=== PATIENT | male | born 1955 | race Caucasian/White ===

== ENCOUNTER 2016-12-15 14:12 | Outpatient (RCR) | payer OTHER | END 2017-03-15 | disposition home or self-care (01) | LOC: CARD 14:12 | PROVIDERS: ATTEND Internal Medicine Interventional Cardiology | DX: R06.02 Shortness of breath (principal); R53.83 Other fatigue; I25.10 Atherosclerotic heart disease of native coronary artery without angina pectoris; E78.5 Hyperlipidemia, unspecified; I10 Essential (primary) hypertension | CPT/HCPCS: 93225; 93226 ==

== ENCOUNTER → 2016-12-29 | Outpatient (CLI) | payer OTHER ==
[~2016-12-29] MED LIST: CATHETER FLUSH 10 ML SYR IV PRN; REGADENOSON 0.4 MG/5 ML SYR (LEXISCAN) IV ONE
[2016-12-29 09:26] VITALS: BP 173/98
--- NOTE | 2016-12-30 12:51 | STRESS TEST ---
DATE OF SERVICE: 12/29/2016 PHARMACOLOGICAL NUCLEAR STRESS TEST PRIMARY PHYSICIAN: Dr. Bolton. INDICATION: Coronary artery disease, hypertension, shortness of breath, diabetes and heart failure. PROCEDURE DETAILS: The patient was brought to the stress lab after informed consent was taken. Stress test was performed according to the Lexiscan protocol. A 0.4 mg of Lexiscan was given intravenously. Low grade exercise was performed. Baseline EKG shows sinus rhythm at 77 BPM. Blood pressure was 173/98 mmHg. Maximum heart rate was 112 BPM. Blood pressure was 196/109 mmHg. The patient did not have any chest pain, arrhythmias or ST-T wave abnormalities. Myoview 10.24 mCi were given for rest imaging and 30.6 mCi of Myoview were given for stress imaging. TID is 1.01. Ejection fraction 51%. There is no perfusion defect on stress or rest imaging. SSS is 0, SRS is 0, SDS is 0. CONCLUSION: 1. Pharmacological stress test is negative for ischemia. 2. Elevated blood pressure is noted. 3. Borderline low LV systolic function is noted with an EF of 51%. However, there is no wall motion abnormality. 4. There is no perfusion defect on stress and rest imaging. Job ID: [id number] DocumentID: [id number] Dictated Date: 12/30/2016 09:31:03 Turbine Attendant Date: 12/30/2016 11:07:16 Dictated By: JEET CARTAGENA MD
== END ==
LOC: CARD 08:19
PROVIDERS: ATTEND Internal Medicine Interventional Cardiology
DX: I25.10 Atherosclerotic heart disease of native coronary artery without angina pectoris (principal); E78.5 Hyperlipidemia, unspecified; I10 Essential (primary) hypertension; R06.02 Shortness of breath; R53.83 Other fatigue
CPT/HCPCS: 78452; 93017

== ENCOUNTER 2017-03-31 08:03 | Outpatient (RCR) | payer OTHER | END 2017-04-29 | disposition home or self-care (01) | PROVIDERS: ATTEND Internal Medicine | DX: M54.2 Cervicalgia (principal) ==

== ENCOUNTER 2018-04-06 13:27 | Outpatient (CLI) | payer OTHER ==
[~2018-04-06] VITALS: Ht 177.8 cm; Wt 81.6 kg
[~2018-04-06 13:27] MED LIST changes: +ATOR20TA66 PO; +BISO10TA PO; -CATHETER FLUSH 10 ML SYR IV PRN; +CYAN250010 PO; +INDA2.5T2 PO; +LISI40TA PO; +MELO7.5T46 PO; +OMEP40CA36 PO; -REGADENOSON 0.4 MG/5 ML SYR (LEXISCAN) IV ONE
== END 2018-04-06 14:00 | disposition home or self-care (01) ==
LOC: PREOP 13:27
PROVIDERS: ATTEND Internal Medicine
DX: Z01.818 Encounter for other preprocedural examination (principal)

== ENCOUNTER 2018-04-10 07:06 | Day surgery (SDC) | payer OTHER ==
[~2018-04-10] VITALS: Ht 177.8 cm; Wt 81.6 kg
[2018-04-10] MEDS ORDERED: D5 LR IV SOLUTION 1,000 ML IV ONE (07:09)
[2018-04-10 07:15] VITALS: BP 137/83
[2018-04-10] MEDS ORDERED: fentaNYL INJECTION 100 MCG/2 ML AMP ONE (07:28)
[2018-04-10] MEDS ORDERED: LIDOCAINE JELLY 2% (XYLOCAINE) 5 ML TUBE ONE (07:28)
[2018-04-10] MEDS ORDERED: MIDAZOLAM 2 MG/2 ML (VERSED) VIAL ONE ×2 (07:28)
[2018-04-10] MEDS ORDERED: LACTATED RINGERS 1,000 ML IV STA (07:32)
[2018-04-10] MEDS ORDERED: MIDAZOLAM 2 MG/2 ML (VERSED) VIAL IVP ONE (07:45)
[2018-04-10] MEDS ORDERED: fentaNYL INJECTION 100 MCG/2 ML AMP IVP ONE (07:45)
--- NOTE | 2018-04-10 08:24 | Pre-Op Note & Conscious Sedat ---
Pre-Operative Progress Note H&P Reviewed The H&P was reviewed, patient examined and no changes noted. Date H&P Reviewed: Apr 10, 2018 Time H&P Reviewed: 07:30 Conscious Sedation Pre-Proced ASA Class: 2 Airway Mallampati Classification: (flandreau appropriate class) I. II. III, IV Lungs Heart ASA score ASA 1: a normal healthy patient ASA 2: a patient with a mild systemic disease (mid diabetes, controlled hypertension, obesity ASA 3: a patient with a severe systemic disease that limits activity (angina , COPD, prior Myocardial infarction) ASA 4: a patient with an incapacitating disease that is a constant threat to life (CHF, renal failure) ASA 5: a moribund patient not expected to survive 24 hrs. (ruptured aneurysm) ASA 6: a declared brain patient whose organs are being harvested. For emergent operations, add the letter E after the classification Grade 2 Sedation Plan: Analgesia, Amnesia, Plan communicated to team members, Discussed options with patient/fam, Discussed risks with patient/fam Note The patient is an appropriate candidate to undergo the planned procedure, sedation, and anesthesia. The patient immediately re-assessed prior to indication. FERNANDO EVANS MD Apr 10, 2018 08:24
[2018-04-10 08:25] VITALS: BP 129/75
[2018-04-10 08:55] VITALS: BP 128/84
[2018-04-10 09:05] VITALS: BP 128/84
--- NOTE | 2018-04-10 10:23 | OPERATIVE REPORT ---
DATE OF SERVICE: COLONOSCOPY SUMMARY INDICATION FOR THE PROCEDURE: Screening colonoscopy. PRIMARY CARE PHYSICIAN: Fernando Evans MD. DESCRIPTION OF PROCEDURE: The patient was placed in the left lateral decubitus position. Prior to undergoing colonoscopy, digital rectal evaluation was performed. Anal sphincter tone was normal and the perianal reflexes intact. Prostate is mildly enlarged, anodular and nontender to digital inspection. No abnormalities were noted on digital inspection of the anal canal or distal rectal vault. The colonoscope was then inserted into the rectum under direct visualization and advanced to the cecum. The cecum was identified by identification of the ileocecal valve and cecal strap. Photographic documentation was obtained. Careful inspection was made as the endoscope was withdrawn. The patient tolerated the procedure well. FINDINGS: There was no evidence for internal or external hemorrhoids. The rectum, sigmoid colon, descending colon, splenic flexure, transverse colon, hepatic flexure, ascending colon and cecum were normal. No evidence for diverticulum, neoplasia or other abnormalities were noted. ASSESSMENT: Normal colonoscopy of the cecum. The patient is not aware of any family history for colon cancer. I would advocate consideration for 10 year screening again. Job ID: [id number] DocumentID: [id number] Dictated Date: 04/10/2018 08:28:42 Distribution Center Assistant Date: 04/10/2018 10:22:39 Dictated By: FERNANDO EVANS MD
== END 2018-04-10 09:05 | disposition home or self-care (01) ==
LOC: ENDO 07:06
PROVIDERS: ATTEND Internal Medicine
DX: Z12.11 Encounter for screening for malignant neoplasm of colon (principal); I10 Essential (primary) hypertension

== ENCOUNTER 2019-05-14 07:23 | Inpatient (IN) | payer OTHER ==
[2019-05-14] VITALS (9 sets, daily range): BP systolic 72–107; BP diastolic 51–74
[~2019-05-14] VITALS: Ht 177 cm; Wt 81.8 kg
--- NOTE | 2019-05-14 08:21 | ED GI ---
General Chief Complaint: Abdominal/GI Problems Stated Complaint: ABD PAIN Nursing Triage Note: ARRIVED VIA AMB WITH COMPLAINTS OF GENERALIZED BODY ACHES WITH EPIGASTRIC PAIN THAT IS BETTER THEN IT WAS YESTERDAY. STATES HE SAW HIS DR YESTERDAY BUT THE GENRALIZED ACHES IS WORSE. Sepsis Screen: Possible Severe Sepsis Risk Source of Information: Patient (GORGE ALMARAZ,MED STUDENT) History of Present Illness Date Seen by Provider: May 14, 2019 Time Seen by Provider: 07:55 Initial Comments Patient is a 63y/o Causasian male that presents to the ED with abdominal pain that started 2-3days ago. Pain is described as constant in the epigastric region when it began but has disappeared now. Nothing makes the pain better or worse . Patient notes that he has very little appetite, has been very nauseous with no vomiting, has not had a bowel movement in 3 days and had some dysuria and muscle cramping yesterday. Pain is rated as 7/10 with no radiation. Patient also mentions that he saw Dr. Bolton yesterday, who thinks this may be a viral illness. ROS admits to fever, chills, nausea, NOGUEIRA, diaphoresis, malaise, decreased appetite, constipation, SOB, low back pain, dysuria, oligoria, muscle cramps denies vomiting, chest pain, light headedness cough, diarrhea Timing/Duration: 2-3 Days Severity/Quality: Moderate, Other (constant) Location: Epigastric Radiation: No Radiation Activities at Onset: None Associated Symptoms: Diaphoresis, Fever/Chills, Fatigue, Nausea/Vomiting (nausea only ), Shortness of Air (GORGE ALMARAZ,MED STUDENT) Allergies and Home Medications Allergies Coded Allergies: No Known Drug Allergies (Unverified , 04/06/18) Home Medications Atorvastatin Calcium 20 Mg Tablet, 20 MG PO HS, (Reported) Bisoprolol Fumarate 10 Mg Tablet, 10 MG PO DAILY, (Reported) Cyanocobalamin (Vitamin B-12) 2,500 Mcg Tablet, 2,500 MCG PO DAILY, (Reported) Indapamide 2.5 Mg Tablet, 2.5 MG PO DAILY, (Reported) Lisinopril 40 Mg Tablet, 40 MG PO DAILY, (Reported) Meloxicam 7.5 Mg Tablet, 7.5 MG PO DAILY, (Reported) Omeprazole 40 Mg Capsule., 40 MG PO DAILY, (Reported) Review of Systems Review of Systems Constitutional: see HPI Respiratory: See HPI Cardiovascular: See HPI Gastrointestinal: See HPI Genitourinary: See HPI Musculoskeletal: see HPI (GORGE ALMARAZ MED STUDENT) Past Shcxyws-Qdayqn-Pbbwid Hx Patient Social History Alcohol Use: Occasionally Uses Recreational Drug Use: No Smoking Status: Never a Smoker Recent Foreign Travel: No Contact w/Someone Who Travel: No Recent Infectious Disease Expo: No Recent Hopitalizations: No (GORGE ALMARAZ MED STUDENT) Seasonal Allergies Seasonal Allergies: No (GORGE ALMARAZ MED STUDENT) Past Medical History Surgeries: Yes (knee replaced, hernia repair) Tonsillectomy Respiratory: No Cardiac: Yes Hypertension Neurological: No Genitourinary: No Gastrointestinal: Yes Abdominal Hernia Musculoskeletal: Yes Arthritis Endocrine: No Cancer: No Psychosocial: No Integumentary: No Blood Disorders: No (GORGE ALMARAZ MED STUDENT) Physical Exam Vital Signs Vital Signs - First Documented 05/14/19 05/14/19 07:40 08:28 Temp 38.4 Pulse 96 Resp 16 B/P (MAP) 107/66 (80) Pulse Ox 91 O2 Delivery Room Air O2 Flow Rate 2.00 (RENETTA ESQUIVEL MD) Vital Signs Capillary Refill : Less Than 3 Seconds (GORGE ALMARAZ MED STUDENT) Height/Weight/BMI Height: 5'10.00" Weight: 180lbs. 0.0oz. 81.253370wu; 26.00 BMI Method: General Appearance: mild distress HEENT: PERRL/EOMI Respiratory: chest non-tender, lungs clear, normal breath sounds, no respiratory distress, no accessory muscle use Cardiovascular: no edema, no gallop, no JVD Peripheral Pulses: 2+ Dorsalis Pedis (R), 2+ Left Dors-Pedis (L), 2+ Radial Pulses (R), 2+ Radial Pulses (L) Gastrointestinal: normal bowel sounds, non tender, soft, no organomegaly, no pulsatile mass Extremities: normal range of motion, non-tender, normal inspection, no pedal edema, no calf tenderness Neurologic/Psychiatric: no motor/sensory deficits, alert, normal mood/affect, oriented x 3 Skin: normal color, diaphoresis, damp (GORGE ALMARAZ MED STUDENT) Focused Exam Sepsis Stage: Septic Shock Possible Source: Unknown Lactate Level 05/14/19 08:25: Lactic Acid Level 3.22*H 05/14/19 10:27: Lactic Acid Level 3.85*H (RENETTA ESQUIVEL MD) Time of Focused Exam: 10:15 Respiratory: Lungs Clear Cardiovascular: Regular Rate, Rhythm, No Edema, No Murmur Capillary Refill: Greater Than 3 Seconds Peripheral Pulses: 2+ Dorsalis Pedis (R); 1+ Radial Pulses (R) Skin: warm/dry, pallor Lactic Acid Level Laboratory Tests Test 05/14/19 08:25 05/14/19 10:27 Lactic Acid Level 3.22 MMOL/L (0.50-2.00) *H 3.85 MMOL/L (0.50-2.00) *H (RENETTA ESQUIVEL MD) Within 3hrs of presentation: Admin fluids, Admin 30ml/kg IBW due to BMI>30, Admin ABX, Blood cultures prior to ABX's, Focus exam, Lactate level, Vasopressin therapy (RENETTA ESQUIVEL MD) Procedures/Interventions Lumen: triple Central Line Procedure: betadine prep, sterile drapes applied, sterile dressing applied Position: internal jugular (R) Anesthesia: Lidocaine Volume Anesthetic (ccs): 2 Complications: none Post Position: sutured (RENETTA ESQUIVEL MD) Progress/Results/Core Measures Results/Orders Lab Results Laboratory Tests Test 05/14/19 08:25 05/14/19 10:20 05/14/19 10:27 Range/Units White Blood Count 3.7 L 4.3-11.0 10^3/uL Red Blood Count 3.57 L 4.35-5.85 10^6/uL Hemoglobin 11.3 L 13.3-17.7 G/DL Hematocrit 34 L 40-54 % Mean Corpuscular Volume 94 80-99 FL Mean Corpuscular Hemoglobin 32 25-34 PG Mean Corpuscular Hemoglobin Concent 34 32-36 G/DL Red Cell Distribution Width 12.1 10.0-14.5 % Platelet Count 132 130-400 10^3/uL Mean Platelet Volume 10.1 7.4-10.4 FL Neutrophils (%) (Auto) 93 H 42-75 % Lymphocytes (%) (Auto) 5 L 12-44 % Monocytes (%) (Auto) 1 0-12 % Eosinophils (%) (Auto) 1 0-10 % Basophils (%) (Auto) 0 0-10 % Neutrophils # (Auto) 3.4 1.8-7.8 X 10^3 Lymphocytes # (Auto) 0.2 L 1.0-4.0 X 10^3 Monocytes # (Auto) 0.0 0.0-1.0 X 10^3 Eosinophils # (Auto) 0.1 0.0-0.3 10^3/uL Basophils # (Auto) 0.0 0.0-0.1 10^3/uL Neutrophils % (Manual) 71 % Lymphocytes % (Manual) 10 % Monocytes % (Manual) 1 % Eosinophils % (Manual) 0 % Basophils % (Manual) 0 % Metamyelocytes % 4 % Band Neutrophils 14 % Prothrombin Time 16.3 H 12.2-14.7 SEC INR Comment 1.3 0.8-1.4 Activated Partial Thromboplast Time 35 24-35 SEC Sodium Level 130 L 135-145 MMOL/L Potassium Level 3.3 L 3.6-5.0 MMOL/L Chloride Level 94 L 98-107 MMOL/L Carbon Dioxide Level 24 21-32 MMOL/L Anion Gap 12 5-14 MMOL/L Blood Urea Nitrogen 18 7-18 MG/DL Creatinine 1.93 H 0.60-1.30 MG/DL Estimat Glomerular Filtration Rate 35 BUN/Creatinine Ratio 9 Glucose Level 99 70-105 MG/DL Lactic Acid Level 3.22 *H 3.85 *H 0.50-2.00 MMOL/L Calcium Level 8.5 8.5-10.1 MG/DL Corrected Calcium 8.9 8.5-10.1 MG/DL Total Bilirubin 2.8 H 0.1-1.0 MG/DL Aspartate Amino Transf (AST/SGOT) 57 H 5-34 U/L Alanine Aminotransferase (ALT/SGPT) 40 0-55 U/L Alkaline Phosphatase 413 H 40-136 U/L C-Reactive Protein High Sensitivity 20.36 H 0.00-0.50 MG/DL Total Protein 6.7 6.4-8.2 GM/DL Albumin 3.5 3.2-4.5 GM/DL Lipase 41 8-78 U/L Urine Color BROWN H Urine Clarity VERY CLOUDY H Urine pH 5 5-9 Urine Specific [place] 1.025 H 1.016-1.022 Urine Protein 3+ H NEGATIVE Urine Glucose (UA) NEGATIVE NEGATIVE Urine Ketones 1+ H NEGATIVE Urine Nitrite POSITIVE H NEGATIVE Urine Bilirubin 3+ H NEGATIVE Urine Urobilinogen 8 H NORMAL MG/DL Urine Leukocyte Esterase 2+ H NEGATIVE Urine RBC (Auto) 1+ H NEGATIVE Urine RBC 5-10 H /HPF Urine WBC 5-10 H /HPF Urine Crystals PRESENT H /LPF Urine Amorphous Sediment LARGE AISHA URATES H /LPF Urine Bacteria FEW H /HPF Urine Casts PRESENT /LPF Urine Granular Casts 10-25 H /LPF Urine Mucus NEGATIVE /LPF Urine Culture Indicated CULTURE PENDING (RENETTA ESQUIVEL MD) Micro Results Microbiology 05/14/19 Influenza Types A,B Antigen (CASEY) - Final, Complete (RENETTA ESQUIVEL MD) My Orders Orders - RENETTA ESQUIVEL MD Cbc With Automated Diff (05/14/19 08:26) Comprehensive Metabolic Panel (05/14/19 08:26) Blood Culture (05/14/19 08:26) Sputum Culture (05/14/19 08:26) Urinalysis (05/14/19 08:26) Urine Culture (05/14/19 08:26) Protime With Inr (05/14/19 08:26) Partial Thromboplastin Time (05/14/19 08:26) Ed Iv/Invasive Line Start (05/14/19 08:26) Ed Iv/Invasive Line Start (05/14/19 08:26) Vital Signs Adult Sepsis Patie Q15M (05/14/19 08:26) O2 (05/14/19 08:26) Remove Rings In Anticipation O (05/14/19 08:26) Lactic Acid Analyzer (05/14/19 08:26) Ns Iv 1000 Ml (Sodium Chloride 0.9%) (05/14/19 08:26) Hs C Reactive Protein (05/14/19 08:26) Lipase (05/14/19 08:26) Chest Pa/Lat (2 View) (05/14/19 08:36) Manual Differential (05/14/19 08:25) Lactated Ringers (Lr 1000 Ml Iv Solution (05/14/19 08:58) Lactated Ringers (Lr 1000 Ml Iv Solution (05/14/19 08:58) Influenza A And B Antigens (05/14/19 09:06) Piperacillin Sodium/Tazobactam (Zosyn Vi (05/14/19 09:30) Us Gallbladder [id number] (05/14/19 09:32) Norepinephrine (Levophed) (05/14/19 10:15) Vancomycin Injection (Vancomycin Injecti (05/14/19 10:30) Vancomycin Injection (Vancomycin Injecti (05/14/19 10:47) Chest 1 View, Ap/Pa Only (05/14/19 11:13) Ct Abdomen/Pelvis Wo (05/14/19 11:42) Ns Iv 1000 Ml (Sodium Chloride 0.9%) (05/14/19 12:10) Fentanyl Injection (Sublimaze Injection (05/14/19 13:15) (RENETTA ESQUIVEL MD) Medications Given in ED Current Medications Medications Dose Ordered Sig/Dalia Route Start Time Stop Time Status Last Admin Dose Admin Lactated Ringer's 1,000 ml @ 0 mls/hr Q0M ONCE IV 05/14/19 08:58 05/14/19 09:01 DC 05/14/19 09:26 1,000 MLS/HR Lactated Ringer's 1,000 ml @ 0 mls/hr Q0M ONCE IV 05/14/19 08:58 05/14/19 09:01 DC 05/14/19 09:33 1,000 MLS/HR Piperacillin Sod/ Tazobactam Sod 4.5 gm/Sodium Chloride 100 ml @ 200 mls/hr ONCE ONCE IV 05/14/19 09:30 05/14/19 09:59 DC 05/14/19 09:42 200 MLS/HR (RENETTA ESQUIVEL MD) Vital Signs/I&O 05/14/19 05/14/19 05/14/19 05/14/19 07:40 08:28 09:27 11:32 Temp 38.4 37.4 37.2 Pulse 96 Resp 16 B/P (MAP) 107/66 (80) Pulse Ox 91 89 O2 Delivery Room Air Nasal Cannula O2 Flow Rate 2.00 05/14/19 05/14/19 12:35 12:42 Temp 36.4 36.9 Pulse 78 Resp 16 B/P (MAP) 89/64 Pulse Ox 96 O2 Delivery Nasal Cannula O2 Flow Rate 2.00 (RENETTA ESQUIVEL MD) Blood Pressure Mean: 80 Progress Progress Note #1: Time: 09:56 Progress Note Patient has been seen and examined. Septic workup is being pursued. Patient has developed hypotension and is now receiving his second and third liters of IV fluids. He is still hypotensive at this time. We will consider vasopressor therapy if this persists after fluid resuscitation has been sufficiently trialed. Patient has been unable to produce a urine specimen. We will catheterize soon if he is unable to urinate. Zosyn was started after blood cultures were obtained. Progress Note #2: Time: 10:15 Progress Note Patient has now completed 3 L of IV fluids. He has still not produced urine. He is still hypotensive. A Duatre catheter will be placed. A norepinephrine drip is being initiated. Zosyn infusion is complete. We will start vancomycin. Gallbladder ultrasound has been performed and report is pending. Preliminary report noted some gallbladder wall thickening and sludge. Gallbladder was also distended. Progress Note #3: Time: 12:11 Progress Note Case has been discussed with Dr. Bolton who would like to patient admitted to the hospitalist service. I discussed the case with Dr. Abraca. He requested a CT of the abdomen and pelvis before admission to assess the abdominal pain further. Patient has just returned from CT. He remains hypotensive despite increasing the norepinephrine drip. A fourth liter of IV fluids has now been ordered. (RENETTA ESQUIVEL MD) Diagnostic Imaging Diagonstic Imaging: Xray Plain Films/CT/US/NM/MRI: chest Comments Chest x-ray viewed by me and report reviewed. See report below: NAME: CONY CLAUDIO [facility] REC#: [id number] PT STATUS: REG ER : 1955 PHYSICIAN: RENETTA ESQUIVEL MD ADMIT DATE: 05/14/19/ER Draft Date of Exam:05/14/19 CHEST PA/LAT (2 VIEW) INDICATION: Body aches and epigastric pain. COMPARISON: None available. TECHNIQUE: 2 radiographs of the chest dated 05/14/2019. FINDINGS: The cardiac silhouette is at the upper limits of normal in size. No significant pulmonary vascular congestion. The lungs are clear of focal pulmonary opacity. No pleural effusion. No pneumothorax. No acute osseous abnormality. IMPRESSION: No acute cardiopulmonary abnormality. Dictated on workstation # [id number] Dict: 05/14/19 0854 Trans: 05/14/19 0856 [id number] Interpreted by: BG PARKS MD Diagonstic Imaging: Ultrasound Plain Films/CT/US/NM/MRI: abdomen Comments Gallbladder ultrasound discussed with cad technician and report reviewed. See report below: NAME: CONY CLAUDIO [facility] REC#: [id number] PT STATUS: REG ER : 1955 PHYSICIAN: RENETTA ESQUIVEL MD ADMIT DATE: 05/14/19/ER Draft Date of Exam:05/14/19 US GALLBLADDER [id number] CLINICAL INDICATIONS: Patient with abdominal pain. EXAM: Right upper quadrant ultrasound. COMPARISON: None. FINDINGS: Patient body habitus and overlying bowel gas obscures some portions of this exam. LIVER: The visualized portions of the liver is normal in shape and echogenicity without focal lesions. There is diffuse hyperechogenicity seen throughout the liver. The main portal vein demonstrates hepatopedal flow. The liver measures 19 cm. GALLBLADDER: There is gallbladder sludge noted in the moderately distended gallbladder. Gallbladder wall is mildly thickened at 4 mm. There is no pericholecystic fluid. There is no sonographic North sign. BILE DUCTS: There is no intrahepatic ductal dilation. Common bile duct is obscured and not able to be evaluated. PANCREAS: Portions of the pancreatic tail are obscured by overlying bowel gas. Otherwise, the remaining visualized portions of the pancreas has normal size, shape, and echogenicity without focal lesions. RIGHT KIDNEY: The visualized portions of the right kidney are unremarkable. The right kidney measures 12.5 cm in craniocaudal dimension. OTHER FINDINGS: The visualized portions of the abdominal aorta and IVC are grossly unremarkable. There is no intra-abdominal free fluid. IMPRESSION: 1: There is gallbladder sludge and mild gallbladder wall thickening. There is no sonographic North's sign or pericholecystic fluid. Unknown if this is related to acute or chronic cholecystitis changes or gallbladder contraction. Nuclear medicine HIDA scan would better evaluate if there is concern for cystic duct obstruction. 2: Common bile duct is unable to be visualized. There is no intrahepatic ductal dilation. 3: Pancreas is partially obscured, but otherwise unremarkable. Dictated on workstation # [id number] Dict: 05/14/19 1033 Trans: 05/14/19 1042 TS [id number] Interpreted by: SIMIN SMITH MD Diagonstic Imaging: Xray Plain Films/CT/US/NM/MRI: chest Comments Chest x-ray for line placement viewed by me and report reviewed. See report below: NAME: CONY CLAUDIO [facility] REC#: [id number] PT STATUS: REG ER : 1955 PHYSICIAN: RENETTA ESQUIVEL MD ADMIT DATE: 05/14/19/ER Draft Date of Exam:05/14/19 CHEST 1 VIEW, AP/PA ONLY Clinical indication: Patient with central line placement. Exam: Portable chest x-ray upright view. Comparisons: Chest x-ray dated 05/14/2019. Findings: There is interval placement of right IJ central line with tip in the caval atrial junction region. There are mild increased airspace opacities within both lung michelle which may represent mild atelectasis. There is no pleural effusion or pneumothorax. Pulmonary vasculature is within normal limits. Cardiac silhouette is upper limits of normal. There are small spurs involving the thoracic spine. Impression: 1: Interval placement of right I J central line with tip in the caval atrial junction. There is no pneumothorax. 2: Suspected bilateral lung atelectasis. 3: Upper limits of normal heart size. Dictated on workstation # [id number] Dict: 05/14/19 1141 Trans: 05/14/19 1143 [facility] [id number] Interpreted by: SIMIN SMITH MD (RENETTA ESQUIVEL MD) Departure Communication (Admissions) Time/Spoke to Admitting Phy: 12:45 Dr. Abdalla 11:38 Dr. Abarca 12:42 Dr. Kurtz (RENETTA ESQUIVEL MD) Impression Primary Impression: Septic shock Additional Impressions: Urinary tract infection Qualified Codes: N39.0 - Urinary tract infection, site not specified Gallbladder sludge Abdominal pain Qualified Codes: R10.84 - Generalized abdominal pain Disposition: 09 ADMITTED INPATIENT Condition: Improved Admissions Decision to Admit Reason: Admit from ER (General) Decision to Admit/Date: May 14, 2019 Time/Decision to Admit Time: 09:15 (RENETTA ESQUIVEL MD) Departure-Patient Inst. Referrals: FERNANDO BOLTON MD (PCP) Primary Care Physician GORGE ALMARAZ,MED STUDENT May 14, 2019 08:21 RENETTA ESQUIVEL MD May 14, 2019 10:01
[2019-05-14] MEDS ORDERED: NS IV 1000 ML 1,000 ML IV SCH ×3 (08:26→14:01)
[2019-05-14 08:37] LABS: BASOPHILS % (AUTO) 0 % (0-10); EOSINOPHILS # (AUTO) 0.1 10^3/uL (0.0-0.3); EOSINOPHILS % (AUTO) 1 % (0-10); HEMATOCRIT 34 % (40-54); HEMOGLOBIN 11.3 G/DL (13.3-17.7); LYMPHOCYTES # (AUTO) 0.2 X 10^3 (1.0-4.0); LYMPHOCYTES % (AUTO) 5 % (12-44); MEAN CORPUSCULAR HEMOGLOBIN 32 PG (25-34); MEAN CORPUSCULAR HGB CONC 34 G/DL (32-36); MEAN CORPUSCULAR VOLUME 94 FL (80-99); MEAN PLATELET VOLUME 10.1 FL (7.4-10.4); MONOCYTES % (AUTO) 1 % (0-12); NEUTROPHILS # (AUTO) 3.4 X 10^3 (1.8-7.8); NEUTROPHILS % (AUTO) 93 % (42-75); PLATELET COUNT 132 10^3/uL (130-400); RED CELL DISTRIBUTION WIDTH 12.1 % (10.0-14.5); WHITE BLOOD COUNT 3.7 10^3/uL (4.3-11.0)
[2019-05-14 08:47] LABS: ALBUMIN 3.5 GM/DL (3.2-4.5); BILIRUBIN,TOTAL 2.8 MG/DL (0.1-1.0); CALCIUM 8.5 MG/DL (8.5-10.1); CREATININE SERUM 1.93 MG/DL (0.60-1.30); POTASSIUM 3.3 MMOL/L (3.6-5.0); TOTAL PROTEIN 6.7 GM/DL (6.4-8.2)
--- NOTE | 2019-05-14 08:56 | Diagnostic Imaging Report ---
INDICATION: Body aches and epigastric pain. COMPARISON: None available. TECHNIQUE: 2 radiographs of the chest dated 05/14/2019. FINDINGS: The cardiac silhouette is at the upper limits of normal in size. No significant pulmonary vascular congestion. The lungs are clear of focal pulmonary opacity. No pleural effusion. No pneumothorax. No acute osseous abnormality. IMPRESSION: No acute cardiopulmonary abnormality. Dictated by: Dictated on workstation # [id number]
[2019-05-14 08:57] LABS: INR 1.3 (0.8-1.4); PROTHROMBIN TIME PATIENT 16.3 SEC (12.2-14.7)
[2019-05-14] MEDS ORDERED: LACTATED RINGERS 1,000 ML IV ONE ×2 (08:58)
--- NOTE | 2019-05-14 09:10 | NUR ---
PT UP ET AMBULATED TO BATHROOM WITH ASSISTANCE.
--- NOTE | 2019-05-14 09:20 | NUR ---
NOTIFIED OF BP 76/53.
[2019-05-14] MEDS ORDERED: PIPERACILLIN SODIUM/TAZOBACTAM 4.5 GM in NS (IVPB) 100 ML IV ONE (09:30)
[2019-05-14 09:47] LABS: BAND NEUTROPHILS 14 %; BASOPHILS % (MANUAL) 0 %; EOSINOPHILS % (MANUAL) 0 %; LYMPHOCYTES % (MANUAL) 10 %; METAMYELOCYTES % 4 %; MONOCYTES % (MANUAL) 1 %; NEUTROPHILS % (MANUAL) 71 %
--- NOTE | 2019-05-14 09:56 | NUR ---
PT HAS TRIED TO URINATE SEVERAL TIMES STILL IS UNABLE.
--- NOTE | 2019-05-14 09:58 | NUR ---
DR NOTIFIED OF BP 75/38. ET STATUS OF FLUIDS.
--- NOTE | 2019-05-14 10:05 | NUR ---
BP 67/27. PT LAYING ON LEFT SIDE. STATES HE FEELS "OK" NOTIFIED WHO CAME INTO TALK TO HIM.
--- NOTE | 2019-05-14 10:06 | NUR ---
DR TALKING TO AT THIS TIME. ULTRASOUND FINISHING UP.
[2019-05-14] MEDS ORDERED: NOREPINEPHRINE 4 MG in NS (IVPB) 250 ML IV SCH (10:15)
[2019-05-14 10:29] LABS: CLARITY,URINE VERY CLOUDY; COLOR,URINE BROWN; GLUCOSE, URINE (UA) NEGATIVE (NEGATIVE); KETONES,URINE 1+ (NEGATIVE); LEUKOCYTE ESTERASE ,URINE 2+ (NEGATIVE); NITRITE,URINE POSITIVE (NEGATIVE); PH,URINE 5 (5-9); PROTEIN,URINE 3+ (NEGATIVE); UROBILINOGEN,URINE 8 MG/DL (NORMAL)
[2019-05-14] MEDS ORDERED: VANCOMYCIN INJECTION 750 MG in NS (IVPB) 250 ML IV SCH (10:30)
--- NOTE | 2019-05-14 10:30 | NUR ---
IN ROOM PREPARING FOR CENTRAL LINE
--- NOTE | 2019-05-14 10:42 | NUR ---
PHARMACY NOTIFIED OF NEEDING VANCOMYCIN.
--- NOTE | 2019-05-14 10:42 | Diagnostic Imaging Report ---
CLINICAL INDICATIONS: Patient with abdominal pain. EXAM: Right upper quadrant ultrasound. COMPARISON: None. FINDINGS: Patient body habitus and overlying bowel gas obscures some portions of this exam. LIVER: The visualized portions of the liver is normal in shape and echogenicity without focal lesions. There is diffuse hyperechogenicity seen throughout the liver. The main portal vein demonstrates hepatopedal flow. The liver measures 19 cm. GALLBLADDER: There is gallbladder sludge noted in the moderately distended gallbladder. Gallbladder wall is mildly thickened at 4 mm. There is no pericholecystic fluid. There is no sonographic North sign. BILE DUCTS: There is no intrahepatic ductal dilation. Common bile duct is obscured and not able to be evaluated. PANCREAS: Portions of the pancreatic tail are obscured by overlying bowel gas. Otherwise, the remaining visualized portions of the pancreas has normal size, shape, and echogenicity without focal lesions. RIGHT KIDNEY: The visualized portions of the right kidney are unremarkable. The right kidney measures 12.5 cm in craniocaudal dimension. OTHER FINDINGS: The visualized portions of the abdominal aorta and IVC are grossly unremarkable. There is no intra-abdominal free fluid. IMPRESSION: 1: There is gallbladder sludge and mild gallbladder wall thickening. There is no sonographic North's sign or pericholecystic fluid. Unknown if this is related to acute or chronic cholecystitis changes or gallbladder contraction. Nuclear medicine HIDA scan would better evaluate if there is concern for cystic duct obstruction. 2: Common bile duct is unable to be visualized. There is no intrahepatic ductal dilation. 3: Pancreas is partially obscured, but otherwise unremarkable. Dictated by: Dictated on workstation # [id number]
[2019-05-14] MEDS ORDERED: VANCOMYCIN INJECTION 1,500 MG in NS IV 500 ML 500 ML IV NR (10:47)
[2019-05-14 11:05] LABS: AMORPHOUS SEDIMENT,UR LARGE AMOR URATES /LPF; BACTERIA,URINE FEW /HPF; BILIRUBIN,URINE 3+ (NEGATIVE)
--- NOTE | 2019-05-14 11:44 | Diagnostic Imaging Report ---
Clinical indication: Patient with central line placement. Exam: Portable chest x-ray upright view. Comparisons: Chest x-ray dated 05/14/2019. Findings: There is interval placement of right IJ central line with tip in the caval atrial junction region. There are mild increased airspace opacities within both lung michelle which may represent mild atelectasis. There is no pleural effusion or pneumothorax. Pulmonary vasculature is within normal limits. Cardiac silhouette is upper limits of normal. There are small spurs involving the thoracic spine. Impression: 1: Interval placement of right I J central line with tip in the caval atrial junction. There is no pneumothorax. 2: Suspected bilateral lung atelectasis. 3: Upper limits of normal heart size. Dictated by: Dictated on workstation # [id number]
--- NOTE | 2019-05-14 12:10 | NUR ---
DR NOTIFIED OF CONTINUING BP IN THE 80'S DESPITE INCREASING LEVOPHED DRIP.
--- NOTE | 2019-05-14 12:38 | NUR ---
PT HAD A SMALL DIARRHEA STOOL. REPORTS HE HAD A SMALL STOOL WHEN HE WAS UP TO THE BATHROOM EARLIER ALSO..
--- NOTE | 2019-05-14 12:38 | Diagnostic Imaging Report ---
PROCEDURE: CT abdomen and pelvis without contrast. TECHNIQUE: Multiple contiguous axial images were obtained through the abdomen and pelvis without the use of intravenous contrast. Auto Exposure Controls were utilized during the CT exam to meet ALARA standards for radiation dose reduction. INDICATION: Epigastric pain and abnormal gallbladder ultrasound. Correlation is made with gallbladder ultrasound earlier the same day. Imaging through the lung bases does show some minimal patchy bibasilar infiltrates or atelectasis. No discrete liver mass is identified. Gallbladder is distended. There appears to be some mild gallbladder wall thickening. There also appears to be very mild pericholecystic inflammatory stranding. No intrahepatic or extra hepatic biliary ductal dilatation is seen. The pancreas and spleen are unremarkable. No adrenal mass is detected. Kidneys are unremarkable. No calculi or hydronephrosis is seen. Aorta is calcified but non-aneurysmal. There are some diverticuli throughout the colon but no definite evidence of acute diverticulitis. There is no free fluid or loculated fluid collection. No free air is seen. Duarte decompresses the urinary bladder. Prostate is unremarkable. Bony structures are nonacute. IMPRESSION: 1. Mild patchy bibasilar infiltrates or atelectasis. 2. Gallbladder hydrops with mild gallbladder wall thickening and pericholecystic inflammation. Acalculous cholecystitis cannot be entirely excluded and HIDA scan may be useful for further evaluation. No ductal dilatation is identified. Dictated by: Dictated on workstation # [id number]
--- NOTE | 2019-05-14 12:48 | NUR ---
PT HAVING LEFT LOWER ABD PAIN ET REQUESTING PAIN MEDS. RANDELL PHYSCIAN STUDENT NOTIFIED.
--- NOTE | 2019-05-14 12:55 | NUR ---
BP 83/59 ET MAP 61
--- NOTE | 2019-05-14 13:00 | NUR ---
IN TALKING TO PT AT THIS TIME.
[2019-05-14] MEDS ORDERED: fentaNYL INJECTION 100 MCG/2 ML AMP IVP ONE (13:15)
--- NOTE | 2019-05-14 13:15 | NUR ---
DR ESQUIVEL NOTIFIED PT CONTINUES TO WANT SOMETHING FOR PAIN.
[2019-05-14] MEDS ORDERED: VASOPRESSIN INJECTION 20 UNIT in NORMAL SALINE 100 ML IV SCH (14:01)
[2019-05-14] MEDS ORDERED: EPINEPHrine 1 MG INJECTION 2 MG in NS (IVPB) 250 ML IV SCH (14:15)
[2019-05-14] MEDS ORDERED: ONDANSETRON 4 MG/2 ML (SDV) Z0FRAN IV PRN (14:15)
[2019-05-14] MEDS ORDERED: NS IV 1000 ML 2,449.41 ML IV ONE (14:15)
[2019-05-14] MEDS: NOREPINEPHRINE 8 MG in NS (IVPB) 250 ML IV SCH ×2 (14:46→17:46)
[2019-05-14] MEDS ORDERED: AMLO10TA7 PO (15:14)
[2019-05-14] MEDS ORDERED: MELO7.5T46 PO (15:14)
[2019-05-14] MEDS ORDERED: OMEP40CA36 PO (15:14)
[2019-05-14] MEDS ORDERED: SULF500T7 PO (15:14)
[2019-05-14] MEDS ORDERED: EPLE50TA3 PO (15:14)
[2019-05-14] MEDS ORDERED: LISI40TA PO (15:14)
[2019-05-14] MEDS ORDERED: BISO10TA PO (15:15)
--- NOTE | 2019-05-14 15:26 | NUR ---
SPOKE WITH THE PATIENT ABOUT HIS MEDICATIONS. HE HAD A LIST WITH HIM. THERE ARE TWO ON HIS LIST WITH ARROWS THAT HE IS NO LONGER TAKING; TERAZOSIN AND TIZANIDINE. HE TAKES VITAMIN B12 OTC DAILY. I CALLED [facility]IA [facility] FOR A LIST OF RECENTLY FILLED MEDICATIONS TO VERIFY: 05-07-19 LIPITOR 20MG HS 04-24-19 SULFASALAZINE QID (TAKES 2 HS) 04-24-19 INDAPAMIDE 2.5MG DAILY 04-02-19 LISINOPRIL 40MG DAILY #04-02-19 OMEPRAZOLE 40MG DAILY #03-08-19 AMLODIPINE 10MG DAILY #03-08-19 EPLERENONE 50MG DAILY #02-15-19 MOBIC 7.5MG DAILY 02-15-19 BISOPROLOL 10MG DAILY (TAKES 1/2 TAB DAILY)
--- NOTE | 2019-05-14 15:35 | Pulmonary Consultation ---
History of Present Illness History of Present Illness Date of Consultation 05/14/19 15:32 Date of Admission Allergies and Home Medications Allergies Coded Allergies: No Known Drug Allergies (Unverified , 04/06/18) Home Medications Amlodipine Besylate 10 Mg Tablet, 10 MG PO DAILY, (Reported) Atorvastatin Calcium 20 Mg Tablet, 20 MG PO HS, (Reported) Bisoprolol Fumarate 10 Mg Tablet, 5 MG PO DAILY, (Reported) TAKES 1/2 (10MG) TABLET Cyanocobalamin (Vitamin B-12) 2,500 Mcg Tablet, 2,500 MCG PO DAILY, (Reported) Eplerenone 50 Mg Tablet, 50 MG PO HS, (Reported) Indapamide 2.5 Mg Tablet, 2.5 MG PO DAILY, (Reported) Lisinopril 40 Mg Tablet, 40 MG PO HS, (Reported) Meloxicam 7.5 Mg Tablet, 7.5 MG PO HS, (Reported) Omeprazole 40 Mg Capsule.dr, 40 MG PO HS, (Reported) Sulfasalazine 500 Mg Tablet, 1,000 MG PO HS, (Reported) TAKES 2 (500MG) TABLETS Past Adbkvol-Wlpusj-Kheiie Hx Patient Social History Alcohol Use: Occasionally Uses Recreational Drug Use: No Smoking Status: Never a Smoker Recent Foreign Travel: No Contact w/Someone Who Travel: No Recent Infectious Disease Expo: No Recent Hopitalizations: No Immunizations Up To Date Date of Influenza Vaccine: May 13, 2019 Seasonal Allergies Seasonal Allergies: No Past Medical History Surgeries: Yes (knee replaced, hernia repair) Tonsillectomy Respiratory: No Cardiac: Yes Hypertension Neurological: No Genitourinary: No Gastrointestinal: Yes Abdominal Hernia Musculoskeletal: Yes Arthritis Endocrine: No Cancer: No Psychosocial: No Integumentary: No Blood Disorders: No Sepsis Event Evaluation Height, Weight, BMI Height: 5'10.00" Weight: 180lbs. 0.0oz. [id number]; 26.00 BMI Method: Exam Exam Vital Signs Date Time Temp Pulse Resp B/P (MAP) Pulse Ox O2 Delivery O2 Flow Rate FiO2 05/14/19 13:45 37.4 74 18 72/54 (60) 94 Nasal Cannula 3.00 05/14/19 13:40 36.9 84 16 89/63 96 Nasal Cannula 2.00 05/14/19 12:42 36.9 78 16 89/64 96 Nasal Cannula 2.00 05/14/19 12:35 36.4 05/14/19 11:32 37.2 05/14/19 09:27 37.4 05/14/19 08:28 89 Nasal Cannula 2.00 05/14/19 07:40 38.4 96 16 107/66 (80) 91 Room Air Height & Weight Height: 5'10.00" Weight: 180lbs. 0.0oz. [id number]; 26.00 BMI Method: Respiratory: Lungs Clear Cardiovascular: Regular Rate, Rhythm, No Edema, No Murmur Capillary Refill: Less Than 3 Seconds Peripheral Pulses: 2+ Dorsalis Pedis (R), 2+ Left Dors-Pedis (L); 1+ Radial Pulses (R); 2+ Radial Pulses (L) Gastrointestinal: normal bowel sounds, non tender, soft, no organomegaly, no pulsatile mass Results Lab Laboratory Tests 05/14/19 08:25 Assessment/Plan Assessment/Plan Severe Sepsis with septic shock -IVF -Continue Zosyn -Zimmerman cultures Metabolic lactic acidosis -IVF UTI with sepsis BRE FIELDS DO May 14, 2019 15:35
[2019-05-14 15:37] LABS: ALBUMIN 2.9 GM/DL (3.2-4.5); BILIRUBIN,TOTAL 2.4 MG/DL (0.1-1.0); CALCIUM 7.8 MG/DL (8.5-10.1); CREATININE SERUM 1.83 MG/DL (0.60-1.30); POTASSIUM 3.4 MMOL/L (3.6-5.0); TOTAL PROTEIN 5.4 GM/DL (6.4-8.2)
[2019-05-14] MEDS ORDERED: PIPERACILLIN/TAZO 4.5 GM/NS 100 ML IV SCH ×2 (16:00)
--- NOTE | 2019-05-14 16:38 | Consultation - Surgery ---
History of Present Illness History of Present Illness Patient Consulted On(steven/time) 05/14/19 16:33 Date Seen by Provider: May 14, 2019 Time Seen by Provider: 16:33 History of Present Illness Consult requested for sepsis, cholecystitis by Dr. Abdalla Patient is as 63 year old male that has had pain for about 2-3 days. Pain go comes and goes. Hasn't been able to drink or eat. Having fever and chills. Thought it was a viral illness. Saw Dr. Bolton yesterday in the office. Patient is hypotensive and requiring pressor support. Patient already had central line placed. U/s showing sludge and questionable gallbladder wall thickening. Patient had ct scan demonstrating hydrops gallbladder, gallbladder wall thickening and pericholecystic fluid. Allergies and Home Medications Allergies Coded Allergies: No Known Drug Allergies (Unverified , 04/06/18) Home Medications Amlodipine Besylate 10 Mg Tablet, 10 MG PO DAILY, (Reported) Atorvastatin Calcium 20 Mg Tablet, 20 MG PO HS, (Reported) Bisoprolol Fumarate 10 Mg Tablet, 5 MG PO DAILY, (Reported) TAKES 1/2 (10MG) TABLET Cyanocobalamin (Vitamin B-12) 2,500 Mcg Tablet, 2,500 MCG PO DAILY, (Reported) Eplerenone 50 Mg Tablet, 50 MG PO HS, (Reported) Indapamide 2.5 Mg Tablet, 2.5 MG PO DAILY, (Reported) Lisinopril 40 Mg Tablet, 40 MG PO HS, (Reported) Meloxicam 7.5 Mg Tablet, 7.5 MG PO HS, (Reported) Omeprazole 40 Mg Capsule.dr, 40 MG PO HS, (Reported) Sulfasalazine 500 Mg Tablet, 1,000 MG PO HS, (Reported) TAKES 2 (500MG) TABLETS Patient Home Medication List Home Medication List Reviewed: Yes Past Ixfyfbm-Drdvse-Etliwe Hx Patient Social History Alcohol Use: Occasionally Uses Recreational Drug Use: No Smoking Status: Never a Smoker Recent Foreign Travel: No Contact w/Someone Who Travel: No Recent Infectious Disease Expo: No Recent Hopitalizations: No Immunizations Up To Date Date of Influenza Vaccine: May 13, 2019 Seasonal Allergies Seasonal Allergies: No Surgeries History of Surgeries: Yes (knee replaced, hernia repair) Surgeries: Tonsillectomy Respiratory History of Respiratory Disorde: No Cardiovascular History of Cardiac Disorders: Yes Cardiac Disorders: Hypertension Neurological History of Neurological Disord: No Genitourinary History of Genitourinary Disor: No Gastrointestinal History of Gastrointestinal Di: Yes Gastrointestinal Disorders: Abdominal Hernia Musculoskeletal History of Musculoskeletal Dis: Yes Musculoskeletal Disorders: Arthritis Endocrine History of Endocrine Disorders: No Cancer History of Cancer: No Psychosocial History of Psychiatric Problem: No Integumentary History of Skin or Integumenta: No Blood Transfusions History of Blood Disorders: No Family Medical History Significant Family History: No Pertinent Family Hx Review of Systems-General Constitutional: see HPI, chills, fever EENTM: no symptoms reported Respiratory: no symptoms reported Cardiovascular: no symptoms reported Gastrointestinal: abdominal pain (RUQ) Genitourinary: no symptoms reported Musculoskeletal: no symptoms reported Skin: no symptoms reported Psychiatric/Neurological: No Symptoms Reported Physical Exam-General Problems Physical Exam Vital Signs Vital Signs - First Documented 05/14/19 05/14/19 07:40 08:28 Temp 38.4 Pulse 96 Resp 16 B/P (MAP) 107/66 (80) Pulse Ox 91 O2 Delivery Room Air O2 Flow Rate 2.00 Capillary Refill : Less Than 3 Seconds General Appearance: mild distress HEENT: PERRL/EOMI, scleral icterus (R), scleral icterus (L) Neck: supple (right IJ) Respiratory: chest non-tender, no respiratory distress, no accessory muscle use Cardiovascular: regular rate, rhythm Gastrointestinal: soft (minimal tenderness epigastric) Back: normal inspection, no CVA tenderness Extremities: normal range of motion Neurologic/Psychiatric: voucher examiner II-XII nml as tested, no motor/sensory deficits, alert, normal mood/affect, oriented x 3 Skin: warm/dry Lymphatic: no adenopathy Data Review Labs Laboratory Tests 05/14/19 08:25: White Blood Count 3.7L, Red Blood Count 3.57L, Hemoglobin 11.3L, Hematocrit 34L, Mean Corpuscular Volume 94, Mean Corpuscular Hemoglobin 32, Mean Corpuscular Hemoglobin Concent 34, Red Cell Distribution Width 12.1, Platelet Count 132, Mean Platelet Volume 10.1, Neutrophils (%) (Auto) 93H, Lymphocytes (%) (Auto) 5L , Monocytes (%) (Auto) 1, Eosinophils (%) (Auto) 1, Basophils (%) (Auto) 0, Neutrophils # (Auto) 3.4, Lymphocytes # (Auto) 0.2L, Monocytes # (Auto) 0.0, Eosinophils # (Auto) 0.1, Basophils # (Auto) 0.0, Neutrophils % (Manual) 71, Lymphocytes % (Manual) 10, Monocytes % (Manual) 1, Eosinophils % (Manual) 0, Basophils % (Manual) 0, Metamyelocytes % 4, Band Neutrophils 14, Prothrombin Time 16.3H, INR Comment 1.3, Activated Partial Thromboplast Time 35, Sodium Level 130L, Potassium Level 3.3L, Chloride Level 94L, Carbon Dioxide Level 24, Anion Gap 12, Blood Urea Nitrogen 18, Creatinine 1.93H, Estimat Glomerular Filtration Rate 35, BUN/Creatinine Ratio 9, Glucose Level 99, Lactic Acid Level 3.22*H, Calcium Level 8.5, Corrected Calcium 8.9, Total Bilirubin 2.8H, Aspartate Amino Transf (AST/SGOT) 57H, Alanine Aminotransferase (ALT/SGPT) 40, Alkaline Phosphatase 413H, C-Reactive Protein High Sensitivity 20.36H, Total Protein 6.7, Albumin 3.5, Lipase 41 05/14/19 10:20: Urine Color BROWNH, Urine Clarity VERY CLOUDYH, Urine pH 5, Urine Specific [place] 1.025H, Urine Protein 3+H, Urine Glucose (UA) NEGATIVE, Urine Ketones 1+H, Urine Nitrite POSITIVEH, Urine Bilirubin 3+H, Urine Urobilinogen 8H, Urine Leukocyte Esterase 2+H, Urine RBC (Auto) 1+H, Urine RBC 5-10H, Urine WBC 5-10H, Urine Crystals PRESENTH, Urine Amorphous Sediment LARGE AISHA URATESH, Urine Bacteria FEWH, Urine Casts PRESENT, Urine Granular Casts 10-25H, Urine Mucus NEGATIVE, Urine Culture Indicated CULTURE PENDING 05/14/19 10:27: Lactic Acid Level 3.85*H 05/14/19 14:21: Sodium Level 131L, Potassium Level 3.4L, Chloride Level 100, Carbon Dioxide Level 22, Anion Gap 9, Blood Urea Nitrogen 18, Creatinine 1.83H, Estimat G lomerular Filtration Rate 38, BUN/Creatinine Ratio 10, Glucose Level 110H, Lactic Acid Level 2.22*H, Calcium Level 7.8L, Corrected Calcium 8.7, Total Bilirubin 2.4H, Aspartate Amino Transf (AST/SGOT) 57H, Alanine Aminotransferase (ALT/SGPT) 37, Alkaline Phosphatase 209H, Total Protein 5.4L, Albumin 2.9L Microbiology 05/14/19 Influenza Types A,B Antigen (CASEY) - Final, Complete Assessment/Plan Assessment/Plan Assessment/Plan sepsis epigastric abd apin cholecystitis with sludge concern for ascending cholangitis. discussed with Dr. Bolton and Rm He is hypotensive and requiring pressor Feel he needs emergent ercp Would transfer to facility with those capabilities. PRAKASH WHITLEY DO May 14, 2019 16:38
--- NOTE | 2019-05-14 18:44 | NUR ---
THIS RN CONTACTED DANNI MARINA AT [facility] TO GIVE REPORT FOR TRANSFER. THIS RN THEN CALLED EMS SHIFT CAPTAIN AND EMS DISPATCH FOR TRANSFER VIA AMBULANCE. PT AND FAMILY UPDATED WITH ROOM NUMBER AND TRANSFER EXPECTATIONS.
--- NOTE | 2019-05-14 21:56 | Discharge Summary ---
Discharge Summary Hospital Course Problems/Dx: (1) Septic shock Status: Acute (2) Cholestatic hepatitis Status: Acute Final Diagnosis: Septic shock Hospital Course Date of Admission: May 14, 2019 at 13:33 Admission Diagnosis : Septic shock Family Physician/Provider: Date of Discharge: 05/14/19 Discharge Diagnosis: Septic shock Hospital Course: Harsh Suggs is a 63yoM who presented with abdominal pain and was admitted with septic shock due to likely ascending cholangitis. He was started on antibiotics. He required pressors for blood pressure support. He was transferred to [place] due to need for gastroenterology consult and likely urgent/emergent ERCP. Labs and Pending Lab Test: Laboratory Tests 05/14/19 08:25: White Blood Count 3.7L, Red Blood Count 3.57L, Hemoglobin 11.3L, Hematocrit 34L, Mean Corpuscular Volume 94, Mean Corpuscular Hemoglobin 32, Mean Corpuscular Hemoglobin Concent 34, Red Cell Distribution Width 12.1, Platelet Count 132, Me an Platelet Volume 10.1, Neutrophils (%) (Auto) 93H, Lymphocytes (%) (Auto) 5L, Monocytes (%) (Auto) 1, Eosinophils (%) (Auto) 1, Basophils (%) (Auto) 0, Neutrophils # (Auto) 3.4, Lymphocytes # (Auto) 0.2L, Monocytes # (Auto) 0.0, Eosinophils # (Auto) 0.1, Basophils # (Auto) 0.0, Neutrophils % (Manual) 71, Lymphocytes % (Manual) 10, Monocytes % (Manual) 1, Eosinophils % (Manual) 0, Basophils % (Manual) 0, Metamyelocytes % 4, Band Neutrophils 14, Prothrombin Time 16.3H, INR Comment 1.3, Activated Partial Thromboplast Time 35, Sodium Level 130L, Potassium Level 3.3L, Chloride Level 94L, Carbon Dioxide Level 24, Anion Gap 12, Blood Urea Nitrogen 18, Creatinine 1.93H, Estimat Glomerular Filtration Rate 35, BUN/Creatinine Ratio 9, Glucose Level 99, Lactic Acid Level 3.22*H, Calcium Level 8.5, Corrected Calcium 8.9, Total Bilirubin 2.8H, Aspartate Amino Transf (AST/SGOT) 57H, Alanine Aminotransferase (ALT/SGPT) 40, Alkaline Phosphatase 413H, C-Reactive Protein High Sensitivity 20.36H, Total Protein 6.7, Albumin 3.5, Lipase 41 05/14/19 10:20: Urine Color BROWNH, Urine Clarity VERY CLOUDYH, Urine pH 5, Urine Specific [place] 1.025H, Urine Protein 3+H, Urine Glucose (UA) NEGATIVE, Urine Ketones 1+H, Urine Nitrite POSITIVEH, Urine Bilirubin 3+H, Urine Urobilinogen 8H, Urine Leukocyte Esterase 2+H, Urine RBC (Auto) 1+H, Urine RBC 5-10H, Urine WBC 5-10H, Urine Crystals PRESENTH, Urine Amorphous Sediment LARGE AISHA URATESH, Urine Bacteria FEWH, Urine Casts PRESENT, Urine Granular Casts 10-25H, Urine Mucus NEGATIVE, Urine Culture Indicated CULTURE PENDING 05/14/19 10:27: Lactic Acid Level 3.85*H 05/14/19 14:21: Sodium Level 131L, Potassium Level 3.4L, Chloride Level 100, Carbon Dioxide Level 22, Anion Gap 9, Blood Urea Nitrogen 18, Creatinine 1.83H, Estimat Glomerular Filtration Rate 38, BUN/Creatinine Ratio 10, Glucose Level 110H, Lact ic Acid Level 2.22*H, Calcium Level 7.8L, Corrected Calcium 8.7, Total Bilirubin 2.4H, Aspartate Amino Transf (AST/SGOT) 57H, Alanine Aminotransferase (ALT/SGPT) 37, Alkaline Phosphatase 209H, Total Protein 5.4L, Albumin 2.9L 05/14/19 16:33: Lactic Acid Level 2.27*H Microbiology 05/14/19 Influenza Types A,B Antigen (CASEY) - Final, Complete Home Meds Active Reported Bisoprolol Fumarate 10 Mg Tablet 5 Mg PO DAILY TAKES 1/2 (10MG) TABLET Eplerenone 50 Mg Tablet 50 Mg PO HS Amlodipine Besylate 10 Mg Tablet 10 Mg PO DAILY Meloxicam 7.5 Mg Tablet 7.5 Mg PO HS Lisinopril 40 Mg Tablet 40 Mg PO HS Omeprazole 40 Mg Capsule.dr 40 Mg PO HS Sulfasalazine 500 Mg Tablet 1,000 Mg PO HS TAKES 2 (500MG) TABLETS Vitamin B12 (Cyanocobalamin (Vitamin B-12)) 2,500 Mcg Tablet 2,500 Mcg PO DAILY Indapamide 2.5 Mg Tablet 2.5 Mg PO DAILY Atorvastatin Calcium 20 Mg Tablet 20 Mg PO HS Assessment/Pt Instructions Patient transferred Discharge Instructions Discharge Diet: Other Diet (NPO) Activity as Tolerated: Yes Discharge Physical Examination General Appearance: Alert, Oriented X3, Cooperative, Mild Distress HEENT: Atraumatic, EOMI Respiratory: Clear to Auscultation, Normal Air Movement Cardiovascular: Regular Rate, No Murmurs Abdominal: Normal Bowel Sounds, Soft, Other (tender to palpation) Extremities: No Edema Skin: No Rashes Psych/Mental Status: Mental Status NL, Mood NL Allergies: Coded Allergies: No Known Drug Allergies (Unverified , 04/06/18) Discharge Summary Date of Admission May 14, 2019 at 13:33 Date of Discharge May 14, 2019 at 19:32 Discharge Date: May 14, 2019 Discharge Time: 16:00 Admission Diagnosis Septic shock Consults/Procedures Consulations General surgery, pulmonology Discharge Diagnosis (1) Septic shock Status: Acute (2) Cholestatic hepatitis Status: Acute Clinical Quality Measures DVT/VTE Risk/Contraindication: Risk Factor Score Per Nursin RFS Level Per Nursing on Admit: 4+=Very High Other: WEARING SCDS. SURGICAL PATIENT WOO MCKOY MD May 14, 2019 21:55
[2019-05-14] MEDS ORDERED: HYDROCORTISONE 100 MG/2 ML (Solu-CORTEF) VIAL IV SCH (22:00)
== END 2019-05-14 19:32 | disposition short-term general hospital (02) | DRG 871 ==
LOC: ER 07:23 → EDUNIT# 07:23 → ICU 13:33
PROVIDERS: ADMIT Internal Medicine; ATTEND Internal Medicine
PROC: 02HV33Z Insertion of Infusion Device into Superior Vena Cava, Percutaneous Approach (ICD-10-PCS; principal; 2019-05-14)
DX: A41.9 Sepsis, unspecified organism (principal); R65.21 Severe sepsis with septic shock; N39.0 Urinary tract infection, site not specified; E87.2 Acidosis; K83.09 Other cholangitis; I10 Essential (primary) hypertension; M19.90 Unspecified osteoarthritis, unspecified site; K81.9 Cholecystitis, unspecified; K82.8 Other specified diseases of gallbladder; K75.89 Other specified inflammatory liver diseases
CPT/HCPCS: 36415; 51702; 71045; 71046; 74176; 76705; 80053; 81000; 83605; 83690; 85007; 85027; 85610; 85730; 86141; 87040; 87081; 87088; 87804

== ENCOUNTER → 2020-02-11 | Outpatient (CLI) | payer OTHER ==
[~2020-02-11] MED LIST changes: +AMLO10TA7 PO; +EPLE50TA3 PO; +OMEP40CA27 PO; -OMEP40CA36 PO; +SLF500T PO
--- NOTE | 2020-02-11 13:39 | Diagnostic Imaging Report ---
PROCEDURE: CT thoracic spine without contrast. TECHNIQUE: Multiple axial computerized tomography images were obtained from the base of the thoracic spine to the vertex without intravenous contrast. Auto Exposure Controls were utilized during the CT exam to meet ALARA standards for radiation dose reduction. INDICATION: Mid back pain. COMPARISON: No prior studies are available for comparison. FINDINGS: Curvature and alignment of the thoracic spine is normal. Vertebral body heights are well maintained. No acute compression fracture is identified. There is generalized degenerative disc disease with variable disc space narrowing and marginal spurring. Paraspinous tissues are unremarkable. IMPRESSION: Thoracic spondylosis. No acute bony abnormality is detected. Dictated by: Dictated on workstation # [id number]
== END ==
LOC: RAD 12:44
PROVIDERS: ATTEND Internal Medicine
DX: M47.814 Spondylosis without myelopathy or radiculopathy, thoracic region (principal)
CPT/HCPCS: 72128

== ENCOUNTER → 2021-01-29 | Outpatient (CLI) | payer OTHER ==
[~2021-01-29] MED LIST changes: +AMLO-251 PO; -AMLO10TA7 PO; -LISI40TA PO; +LISI40TA9 PO; -OMEP40CA27 PO; +OMEP40CA6 PO
--- NOTE | 2021-01-29 08:53 | Diagnostic Imaging Report ---
Indication: Low back pain, degenerative disc disease. Comparison: 03/31/2009 Findings: 3 views of the lumbar column demonstrate mild to moderate diffuse degenerative disc disease which has progressed from the prior exam. There is diffuse facet joint arthropathy. Increasing calcifications are seen in the abdominal aorta. Questionable aneurysm is seen inferior to the renal arteries. There is no osseous lesion. SI joints are symmetric. Impression: 1. Increasing mild to moderate diffuse degenerative disc disease and facet arthropathy. 2. Increasing atherosclerotic disease of the abdominal aorta with suspected aneurysm. Dictated by: Dictated on workstation # [id number]
--- NOTE | 2021-01-29 08:55 | Diagnostic Imaging Report ---
Indication: Hip and pelvic pain. Comparison: None Findings: Single view of the pelvis demonstrates mild degenerative joint disease both hips. There is no fracture or dislocation. No osseous lesion. Impression: Mild degenerative joint disease without fracture. Dictated by: Dictated on workstation # [id number]
== END ==
LOC: RAD 07:51
PROVIDERS: ATTEND Internal Medicine Rheumatology
DX: M51.36 Other intervertebral disc degeneration, lumbar region (principal); M47.816 Spondylosis without myelopathy or radiculopathy, lumbar region; I70.0 Atherosclerosis of aorta; M16.10 Unilateral primary osteoarthritis, unspecified hip; M19.09 Primary osteoarthritis, other specified site; Z79.899 Other long term (current) drug therapy
CPT/HCPCS: 72100; 72170

== ENCOUNTER → 2021-08-03 | Outpatient (CLI) | payer OTHER ==
[~2021-08-03] MED LIST changes: -BISO10TA PO; +BISO10TA6 PO
== END ==
LOC: LABNPT 10:46
PROVIDERS: ATTEND Internal Medicine
DX: Z20.822 Contact with and (suspected) exposure to COVID-19 (principal)
CPT/HCPCS: 87635; 87636

== ENCOUNTER 2021-11-17 14:26 | Outpatient (CLI) | payer OTHER ==
[~2021-11-17] VITALS: Ht 177.8 cm; Wt 75.0 kg
[2021-11-17 14:45] VITALS: BP 128/91
[2021-11-17] MEDS ORDERED: MAGNESIUM 1 GM/100 ML IVPB IV SCH (15:00)
[2021-11-17] MEDS ORDERED: CYAN100088 PO (18:47)
[2021-11-17] MEDS ORDERED: AMLO-250 PO (18:47)
[2021-11-17] MEDS ORDERED: FAMO40TA72 PO (18:47)
[2021-11-17] MEDS ORDERED: CHOL3000 PO (18:47)
[2021-11-17] MEDS ORDERED: ADAL20SY SQ (19:05)
[2021-11-17] MEDS ORDERED: MAGN27TA3 PO (19:05)
[2021-11-17] MEDS ORDERED: ACET-168 PO (19:05)
[2021-11-17] MEDS ORDERED: AMIL5TAB3 PO (19:05)
== END 2021-11-17 19:06 | disposition home or self-care (01) ==
LOC: SDC 14:26
PROVIDERS: ATTEND Internal Medicine
DX: E83.42 Hypomagnesemia (principal)
CPT/HCPCS: 96365; 96366

== ENCOUNTER 2021-11-25 06:36 | Outpatient (CLI) | payer OTHER ==
[~2021-11-25] VITALS: Ht 177.8 cm; Wt 72.6 kg
[~2021-11-25 06:36] MED LIST changes: +ACET-168 PO; +ADAL20SY SQ; +AMIL5TAB3 PO; +AMLO-250 PO; +CHOL3000 PO; +CYAN100088 PO; +FAMO40TA72 PO; +MAGN27TA3 PO
[2021-11-25] MEDS ORDERED: ADAL40PE SQ (08:14)
== END 2021-11-25 09:49 | disposition home or self-care (01) ==
LOC: PREOP 06:36
PROVIDERS: ATTEND Internal Medicine
DX: Z01.818 Encounter for other preprocedural examination (principal)

== ENCOUNTER 2021-12-03 08:10 | Day surgery (SDC) | payer OTHER ==
--- NOTE | 2021-11-24 20:41 | HISTORY AND PHYSICAL ---
DATE OF SERVICE: COLONOSCOPY HISTORY AND PHYSICAL DATE OF ADMISSION: 12/03/2021 HISTORY: The patient is a 66-year-old white male seen in the office for followup of hypertension, spondyloarthropathy without x-ray change and hypomagnesemia with a past history of acute tubular necrosis due to sepsis from underlying cholecystitis and ascending cholangitis. He reports he continues to have problems with diarrhea. There may be association with magnesium supplementation, but even on a dose of 250 mg, he is still having 4 to 6 loose stools per day. He denies any associated with bleeding. He has not been on the medication to my knowledge that could be contributing to his magnesium deficiency and 2 weeks ago, he had started amiloride, only other diuretic is Inspra 50 mg daily, and chlorthalidone 12.5 mg daily. Eplerenone was added in the past due to refractory nature of his hypertension. He has noticed no changes in his diarrhea over the last 2 weeks. He has noted no blood. Denies any abdominal cramping. He had undergone colonoscopy 4 years ago that did not reveal evidence for neoplasia or inflammatory change at that time. His magnesium level was unchanged from 2 weeks ago at 0.8. His potassium level was in the middle of the normal range at 4.5 up from 3.8. His creatinine was 1.2 with a BUN of 25 and a GFR estimated at 67. He has had increase in back pain since he discontinued meloxicam and a sed rate was up from 37 to 50. He is having more morning stiffness and has a call into his biologist aide about increasing Humira, for which he currently takes 40 mg every 2 weeks. REVIEW OF SYSTEMS: Pertinent for about 12-pound weight loss over the past year. PHYSICAL EXAMINATION: GENERAL: Reveals a white male, who did not appear to be in acute distress. VITAL SIGNS: Weight 162 pounds, blood pressure 130/80. CHEST: Clear. CARDIOVASCULAR: Reveals a regular rate and rhythm. Soft 1 to 2/6 systolic ejection murmur without evidence for S3 or S4. No pulses, parvus, or tardus is noted. ABDOMEN: Nontender to palpation. No mass or organomegaly noted. EXTREMITIES: Reveal no cyanosis, clubbing or edema. ASSESSMENT: 1. Due to persistent diarrhea, but I doubt it is related to magnesium gluconate at 250 mg daily, the patient is being set up for colonoscopy. Additional history, he did have one course of antibiotic therapy in the form of amoxicillin for a week in July, which does not really appear to be temporarily associated with the timing of his diarrhea. He is being set up for colonoscopy on 12/03/2021. Prep instructions with the Suprep kit were given and questions were answered. 2. Refractory HTN. He is not having any difficulty with hyperkalemia despite eplerenone and amiloride. We will continue these medications and his other blood pressure medication. Suspect underlying hyperaldosteronism. Previous CT scans did not reveal any evidence for adrenal adenoma. Continue conservative medical management as his blood pressure has been under good control for some time now. 3. Hypomagnesemia. Advised early followup with his millwork estimator for further recommendations, for the most part this remains asymptomatic. He has had no palpitations, syncope, presyncope, or significant muscle cramping. Job ID: [id number] DocumentID: [id number] Dictated Date: 11/11/2021 18:02:24 Inspector Multifocal Lens Date: 11/11/2021 18:29:11 Dictated By: FERNANDO EVANS MD MTDD
[~2021-12-03] VITALS: Ht 177.8 cm; Wt 72.6 kg
[~2021-12-03 08:10] MED LIST changes: +ADAL40PE SQ
[2021-12-03] MEDS ORDERED: LACTATED RINGERS 1,000 ML IV STA (08:17)
--- NOTE | 2021-12-03 08:21 | Pre-Op Note & Conscious Sedat ---
Pre-Operative Progress Note H&P Reviewed The H&P was reviewed, patient examined and no changes noted. Date H&P Reviewed: December 03, 2021 Time H&P Reviewed: 08:21 Conscious Sedation Pre-Proced ASA Score 3 For ASA 3 and 4: Consider anesthesia and medical clearance. Also, for patients with a history of failed moderate sedation consider anesthesia. Airway Lungs Heart ASA score ASA 1: a normal healthy patient ASA 2: a patient with a mild systemic disease (mid diabetes, controlled hypertension, obesity ASA 3: a patient with a severe systemic disease that limits activity (angina, COPD, prior Myocardial infarction) ASA 4: a patient with an incapacitating disease that is a constant threat to life (CHF, renal failure) ASA 5: a moribund patient not expected to survive 24 hrs. (ruptured aneurysm) ASA 6: a declared brain- patient whose organs are being harvested. For emergent operations, add the letter E after the classification Mallampati Classification Grade 2 Sedation Plan Analgesia, Amnesia, Plan communicated to team members, Discussed options with patient/fam, Discussed risks with patient/fam The patient is an appropriate candidate to undergo the planned procedure, sedation, and anesthesia. The patient immediately re-assessed prior to indication. FERNANDO EVANS MD December 03, 2021 08:21
[2021-12-03 08:28] VITALS: BP 128/84
[2021-12-03] MEDS ORDERED: MIDAZOLAM 2 MG/2 ML (VERSED) VIAL ONE (09:00)
[2021-12-03] MEDS ORDERED: PROPOFOL INJECTION 50 ML IV ONE (09:00)
[2021-12-03 09:25] VITALS: BP 125/66
[2021-12-03 09:30] VITALS: BP 125/67
[2021-12-03 09:35] VITALS: BP 125/67
[2021-12-03 09:47] VITALS: BP 125/65
--- NOTE | 2021-12-03 13:51 | OPERATIVE REPORT ---
DATE OF SERVICE: COLONOSCOPY SUMMARY INDICATION FOR THE PROCEDURE: Chronic diarrhea with weight loss. DESCRIPTION OF PROCEDURE: The patient was placed in the left lateral decubitus position. Prior to undergoing colonoscopy, digital rectal evaluation was performed. There is moderate enlargement of the prostate with no evidence for nodularity. No other abnormalities were noted on digital inspection of anal canal or distal rectal vault. The colonoscope was then inserted into the rectum and under direct visualization advanced to cecum. The cecum was identified by identification of ileocecal valve and cecal strap. The terminal ileum was intubated, and the distal 5 cm of terminal ileum were inspected. Photographic documentation was obtained. Careful inspection was made as colonoscope withdrawn. Quality of prep was good. FINDINGS: There was no evidence for internal or external hemorrhoids and the rectum was unremarkable with no evidence for inflammatory change to gross inspection. A biopsy was obtained and submitted for microscopic colitis evaluation. Several small to medium size sigmoid diverticulum were present without evidence for diverticulitis. The descending colon, splenic flexure, transverse colon, hepatic flexure, ascending colon, cecum and distal 5 cm of terminal ileum inspected were unremarkable with no inflammatory change. No evidence for neoplasia. ASSESSMENT: Mild diverticular disease confined to the sigmoid colon was present with otherwise normal colonoscopy to the cecum including distal 5 cm of terminal ileum with no evidence to suggest inflammatory bowel disease. A biopsy was obtained for microscopic colitis evaluation pending at the time of dictation. Prostate was moderately enlarged without nodularity on digital inspection. Advise consideration for repeat screening colonoscopy in 10 years. Job ID: [id number] DocumentID: [id number] Dictated Date: 12/03/2021 09:26:38 Insulator Technician Date: 12/03/2021 13:50:33 Dictated By: FERNANDO EVANS MD
--- NOTE | 2021-12-03 14:41 | Anesthesia-General Post-Op ---
MAC Patient Condition Mental Status/LOC: Same as Preop Cardiovascular: Satisfactory Nausea/Vomiting: Absent Respiratory: Satisfactory Pain: Controlled Complications: Absent Post Op Complications Complications None Follow Up Care/Instructions Patient Instructions None needed. Anesthesiology Discharge Order Discharge Order Patient is doing well, no complaints, stable vital signs, no apparent adverse anesthesia problems. No complications reported per nursing. LES JOHNS CRNA December 03, 2021 14:41
== END 2021-12-03 10:13 | disposition home or self-care (01) ==
LOC: ENDO 08:10
PROVIDERS: ATTEND Internal Medicine
DX: K63.89 Other specified diseases of intestine (principal); K52.9 Noninfective gastroenteritis and colitis, unspecified; R63.4 Abnormal weight loss; I10 Essential (primary) hypertension; E83.42 Hypomagnesemia; K57.30 Diverticulosis of large intestine without perforation or abscess without bleeding
CPT/HCPCS: 88305

== ENCOUNTER → 2022-01-25 | Outpatient (CLI) | payer OTHER ==
[2022-01-25] MEDS: MAGNESIUM 1 GM/D5W 100 ML IVPB IV SCH ×2 (14:17→15:18)
[2022-01-25 14:19] VITALS: BP 121/88
== END ==
LOC: SDC 13:54
PROVIDERS: ATTEND Nurse Practitioner Family
DX: E83.42 Hypomagnesemia (principal)
CPT/HCPCS: 96365; 96366

== ENCOUNTER → 2022-05-17 | Outpatient (CLI) | payer OTHER ==
[2022-05-17 13:15] VITALS: BP 141/82
[2022-05-17] MEDS: MAGNESIUM 1 GM/D5W 100 ML IVPB IV SCH ×3 (13:40→15:37)
== END ==
LOC: SDC 13:07
PROVIDERS: ATTEND Internal Medicine
DX: Z01.89 Encounter for other specified special examinations (principal)
CPT/HCPCS: 96365; 96366

== ENCOUNTER 2022-06-10 10:15 | Outpatient (CLI) | payer BC ==
[~2022-06-10] VITALS: Ht 177.8 cm; Wt 75.0 kg
[2022-06-10] MEDS ORDERED: MAGNESIUM 1 GM/100 ML IVPB 400 ML IV ONE (10:41)
[2022-06-10] MEDS: MAGNESIUM 1 GM/100 ML IVPB IV SCH ×4 (10:45→13:48)
[2022-06-10 11:20] VITALS: BP 129/79
== END 2022-06-10 15:01 ==
LOC: SDC 10:15
PROVIDERS: ATTEND Internal Medicine
DX: E83.42 Hypomagnesemia (principal)
CPT/HCPCS: 96365; 96366

== ENCOUNTER → 2022-11-14 | Outpatient (CLI) | payer BC ==
--- NOTE | 2022-11-14 16:07 | Diagnostic Imaging Report ---
T-SPINE 3V-AP, LAT, SWIMMERS INDICATION: Back pain. COMPARISON: None available. TECHNIQUE: Three views of the thoracic spine. FINDINGS: Mildly exaggerated kyphosis. No compression deformity is present. No spondylolisthesis. Severe vascular calcification noted in the upper abdomen. Intervertebral disc space heights are preserved. IMPRESSION: No acute compression deformity in the thoracic vertebrae. Dictated by: Dictated on workstation # [id number]
--- NOTE | 2022-11-14 16:10 | Diagnostic Imaging Report ---
LUMBAR SPINE - 2-3 VIEWS INDICATION: Lower back pain. COMPARISON: 02/16/2021. TECHNIQUE: Three views of the lumbosacral spine. FINDINGS: Alignment remains normal. No compression fracture. No ankylosis within the lumbar spine or SI joints. [id number] degenerative disc disease at L3-L4 and L4-L5 has not changed. Facet osteoarthritis in the lower lumbar spine is also similar. Severe vascular calcifications are again noted. IMPRESSION: 1. No acute osseous abnormality in the lumbar spine. 2. Multilevel degenerative changes in the lower lumbar spine are similar to prior exam. Dictated by: Dictated on workstation # [id number]
== END ==
LOC: RAD 15:01
PROVIDERS: ATTEND Nurse Practitioner Family
DX: M51.36 Other intervertebral disc degeneration, lumbar region (principal); M47.816 Spondylosis without myelopathy or radiculopathy, lumbar region
CPT/HCPCS: 72072; 72100